=== PATIENT | male | born 1950 | race Caucasian/White ===

== ENCOUNTER 2023-01-18 16:42 | Inpatient (IN) | payer OTHER ==
[~2023-01-18] VITALS: Ht 175.3 cm; Wt 94.6 kg
[2023-01-18 17:25] VITALS: BP_SYST 145
[2023-01-18 18:34] LABS: BASOPHILS % (AUTO) 0.8 % (0.0-2.0); EOSINOPHILS # (AUTO) 0.2 K/uL (0.0-0.4); EOSINOPHILS % (AUTO) 4.3 % (0.0-4.0); HEMATOCRIT 38.6 % (36-54); HEMOGLOBIN 12.7 g/dL (14.0-18.0); LYMPHOCYTES # (AUTO) 1.2 K/uL (1.0-5.5); LYMPHOCYTES % (AUTO) 27.5 % (20.5-51.5); MEAN CORPUSCULAR HEMOGLOBIN 30 pg (27-31); MEAN CORPUSCULAR HGB CONC 33 % (32-36); MEAN CORPUSCULAR VOLUME 89 fL (79.0-98.0); MONOCYTES # (AUTO) 0.4 K/uL (0.0-1.0); MONOCYTES % (AUTO) 9.4 % (1.7-9.3); NEUTROPHILS # (AUTO) 2.6 K/uL (1.8-7.7); PLATELET COUNT (AUTO) 119 K/uL (130-430); RED BLOOD CELL COUNT(AUTO) 4.32 MIL/uL (4.2-6.2); RED CELL DISTRIBUTION WIDTH 15.3 % (9.0-15.0); WHITE BLOOD COUNT (AUTO) 4.5 K/uL (4.8-10.8)
[2023-01-18] MEDS ORDERED: ROSU40TA PO (18:43)
[2023-01-18] MEDS ORDERED: METF-379 PO (18:43)
[2023-01-18] MEDS ORDERED: METO-542 PO (18:43)
[2023-01-18] MEDS ORDERED: VITD2000 PO (18:43)
[2023-01-18] MEDS ORDERED: DAPA10TA PO (18:43)
[2023-01-18] MEDS ORDERED: FENO160 PO (18:43)
[2023-01-18] MEDS ORDERED: RIVA20TA PO (18:43)
[2023-01-18] MEDS ORDERED: GLIP10TA21 PO (18:43)
[2023-01-18] MEDS ORDERED: SITA100T11 PO (18:43)
[2023-01-18] MEDS ORDERED: OMEP20CA15 PO (18:43)
[2023-01-18 18:58] LABS: ALANINE AMINOTRANSFERASE 29 U/L (12-78); ALBUMIN 3.7 g/dL (3.4-4.8); ANION GAP 7 (5-15); ASPARTATE AMINOTRANSFERASE 44 U/L (10-37); CALCIUM 9.2 mg/dL (8.4-11.0); CHLORIDE 103 mmol/L (98-107); CREATININE 1.05 mg/dL (0.55-1.30); GLUCOSE 159 mg/dL (70-99); TOTAL BILIRUBIN 0.6 mg/dL (0.0-1.0); UREA NITROGEN, BLOOD 15 mg/dL (8-21)
[2023-01-18] MEDS ORDERED: NITROGLYCERIN 1 INCH (GM) OINT. TP ONE (21:00)
[2023-01-18 22:51] VITALS: BP_SYST 148
[2023-01-18] MEDS ORDERED: RAMI10CA42 PO (23:20)
[2023-01-18] MEDS: ATORVASTATIN 20 MG TABLET PO SCH (23:50)
[2023-01-18] MEDS: glipiZIDE XL 5 MG TAB ( GLUCOTROL XL) PO SCH (23:50)
[2023-01-18] MEDS: DILTIAZEM HCL 30 MG TABLET PO SCH (23:51)
[2023-01-18] MEDS: METOPROLOL SUCCINATE 50 MG TAB.SR.24H (TOPROL XL) PO SCH (23:52)
[2023-01-18] MEDS: FUROSEMIDE 40 MG/4 ML VIAL IVP SCH (23:53)
[2023-01-19] MEDS ORDERED: FENO145T24 PO (06:56)
[2023-01-19 07:25] LABS: BASOPHILS % (AUTO) 0.6 % (0.0-2.0); EOSINOPHILS # (AUTO) 0.2 K/uL (0.0-0.4); EOSINOPHILS % (AUTO) 4.6 % (0.0-4.0); HEMATOCRIT 39.4 % (36-54); LYMPHOCYTES # (AUTO) 1.3 K/uL (1.0-5.5); LYMPHOCYTES % (AUTO) 25.6 % (20.5-51.5); MEAN CORPUSCULAR HEMOGLOBIN 30 pg (27-31); MEAN CORPUSCULAR HGB CONC 33 % (32-36); MEAN CORPUSCULAR VOLUME 90 fL (79.0-98.0); MONOCYTES # (AUTO) 0.5 K/uL (0.0-1.0); NEUTROPHILS # (AUTO) 2.9 K/uL (1.8-7.7); NEUTROPHILS % (AUTO) 58.2 % (40.0-70.0); PLATELET COUNT (AUTO) 119 K/uL (130-430); RED BLOOD CELL COUNT(AUTO) 4.39 MIL/uL (4.2-6.2); RED CELL DISTRIBUTION WIDTH 15.6 % (9.0-15.0)
[2023-01-19 07:47] LABS: ANION GAP 6 (5-15); CALCIUM 9.2 mg/dL (8.4-11.0); CHLORIDE 101 mmol/L (98-107); CREATININE 1.03 mg/dL (0.55-1.30); GLUCOSE 165 mg/dL (70-99); UREA NITROGEN, BLOOD 11 mg/dL (8-21)
[2023-01-19] MEDS: metFORMIN HCL 500 MG TABLET PO SCH ×2 (08:00→17:59)
[2023-01-19 08:49] VITALS: BP_SYST 136
[2023-01-19] MEDS ORDERED: OMEPRAZOLE Non-Formulary 20 MG CAPSULE.DR PO SCH (09:00)
[2023-01-19] MEDS: PANTOPRAZOLE SODIUM 40 MG TAB PO SCH (09:27)
[2023-01-19] MEDS: DILTIAZEM HCL 30 MG TABLET PO SCH (09:27)
[2023-01-19] MEDS: METOPROLOL SUCCINATE 50 MG TAB.SR.24H (TOPROL XL) PO SCH ×2 (09:27→21:27)
[2023-01-19] MEDS: glipiZIDE XL 5 MG TAB ( GLUCOTROL XL) PO SCH ×2 (09:27→21:26)
[2023-01-19] MEDS: CHOLECALCIFEROL (VITAMIN D3) 2,000 UNIT TABLET PO SCH (09:28)
[2023-01-19] MEDS: FUROSEMIDE 40 MG/4 ML VIAL IVP SCH (09:28)
[2023-01-19] MEDS: FENOFIBRATE NANOCRYSTALLIZED 48 MG TABLET (TRICOR) PO SCH (09:28)
[2023-01-19] MEDS ORDERED: DILTIAZEM HCL 240 MG CAP.SR.24H PO ONE (11:00)
[2023-01-19 13:34] VITALS: BP_SYST 132
[2023-01-19 17:04] VITALS: BP_SYST 114
[2023-01-19] MEDS ORDERED: RIVAROXABAN 10 MG TABLET PO SCH (18:00)
[2023-01-19 19:00] VITALS: BP_SYST 115
[2023-01-19 20:00] VITALS: BP_SYST 115
[2023-01-19] MEDS: FUROSEMIDE 20 MG/2 ML VIAL IVP SCH (21:25)
[2023-01-19] MEDS: ATORVASTATIN 20 MG TABLET PO SCH (21:26)
[2023-01-20 00:18] VITALS: BP_SYST 99
[2023-01-20] MEDS ORDERED: DILTIAZEM HCL 240 MG CAP.SR.24H PO SCH (09:00)
[2023-01-20 09:24] VITALS: BP_SYST 128
[2023-01-20] MEDS: glipiZIDE XL 5 MG TAB ( GLUCOTROL XL) PO SCH (09:55)
[2023-01-20] MEDS: PANTOPRAZOLE SODIUM 40 MG TAB PO SCH (09:57)
[2023-01-20] MEDS: METOPROLOL SUCCINATE 50 MG TAB.SR.24H (TOPROL XL) PO SCH (09:57)
[2023-01-20] MEDS: FENOFIBRATE NANOCRYSTALLIZED 48 MG TABLET (TRICOR) PO SCH (09:59)
[2023-01-20] MEDS: FUROSEMIDE 20 MG/2 ML VIAL IVP SCH (10:00)
[2023-01-20] MEDS: CHOLECALCIFEROL (VITAMIN D3) 2,000 UNIT TABLET PO SCH (10:00)
[2023-01-20] MEDS: metFORMIN HCL 500 MG TABLET PO SCH (10:08)
[2023-01-20 11:33] VITALS: BP_SYST 111
[2023-01-20 12:29] VITALS: BP_SYST 111
[2023-01-20] MEDS ORDERED: FURO20TA4 PO (15:57)
[2023-01-20] MEDS ORDERED: FURO-150 PO (15:58)
[2023-01-20] MEDS ORDERED: FUROSEMIDE 20 MG TABLET PO ONE (16:15)
[2023-01-20 16:20] VITALS: BP_SYST 114
[2023-01-21] MEDS ORDERED: FUROSEMIDE 20 MG TABLET PO SCH (09:00)
== END 2023-01-20 16:30 | disposition home or self-care (01) | DRG 291 ==
LOC: SED 16:42 → STU 21:22
PROVIDERS: ADMIT Specialist; ATTEND Family Medicine
DX: I11.0 Hypertensive heart disease with heart failure (principal); I50.33 Acute on chronic diastolic (congestive) heart failure; I48.20 Chronic atrial fibrillation, unspecified; E11.9 Type 2 diabetes mellitus without complications; E78.5 Hyperlipidemia, unspecified; Z20.822 Contact with and (suspected) exposure to COVID-19; M19.90 Unspecified osteoarthritis, unspecified site; Z79.01 Long term (current) use of anticoagulants; Z79.84 Long term (current) use of oral hypoglycemic drugs; Z79.899 Other long term (current) drug therapy; Z86.73 Personal history of transient ischemic attack (TIA), and cerebral infarction without residual deficits; Z87.891 Personal history of nicotine dependence
CPT/HCPCS: 36415; 71045; 80048; 80053; 83037; 83880; 84484; 85025; 93005; 93306; 99285; G0378; J1940